=== PATIENT | male | born 2000 | race Caucasian/White ===

== ENCOUNTER 2018-11-29 18:53 | Emergency (ER) | payer SELFPAY ==
[~2018-11-29] VITALS: Ht 177.8 cm; Wt 89.0 kg
[2018-11-29 19:05] VITALS: BP 110/66
== END 2018-11-29 20:32 | disposition left against medical advice (07) ==
LOC: ER 18:53
DX: R00.2 Palpitations (principal); Z53.21 Procedure and treatment not carried out due to patient leaving prior to being seen by health care provider
CPT/HCPCS: 93005